=== PATIENT | female | born 1965 | race African-American/Black ===

== ENCOUNTER 2023-08-18 18:39 | Inpatient (IN) | payer MEDICAID, OTHER ==
[~2023-08-18] VITALS: Ht 177.8 cm; Wt 69.4 kg
[~2023-08-18 18:39] MED LIST: AMLO10TA80 PO; HYDR50TA39 PO
[2023-08-18 20:51] LABS: BASOPHILS % 0.8 % (0.0-2.0); DIFFERENTIAL COMMENT 0; EOSINOPHILS % 3.7 % (0.0-5.0); HEMATOCRIT. 28.8 % (36.0-48.0); HEMOGLOBIN. 8.8 g/dL (12.0-16.0); LYMPHOCYTES % 23.6 % (20.0-50.0); MEAN CORPUSCULAR HEMOGLOBIN 23.1 pg (28.0-32.0); MEAN CORPUSCULAR HGB CONC 30.5 g/dL (31.0-37.0); MEAN CORPUSCULAR VOLUME 75.8 fL (81.0-99.0); MEAN PLATELET VOLUME 7.5 fl (7.4-10.4); MONOCYTES % 10.4 % (2.0-8.0); NEUTROPHILS % 61.5 % (40.0-76.0); PLATELET 385 x1000/uL (130-400); RED CELL DISTRIBUTION WIDTH 18.4 % (11.6-14.6); WHITE BLOOD COUNT 4.1 x1000/uL (4.5-11.0)
[2023-08-18 20:55] LABS: CHLORIDE 106 mEq/L (98-107); POTASSIUM 4.7 mEq/L (3.5-5.1); SODIUM 139 mEq/L (136-145)
[2023-08-18 20:56] LABS: CALCIUM 9.1 mg/dL (8.7-10.4); CARBON DIOXIDE 27 mEq/L (21-32)
[2023-08-18 21:00] LABS: PROTHROMBIN TIME 10.7 sec (9.6-11.0)
[2023-08-18 21:01] LABS: CREATININE 1.1 mg/dL (0.6-1.0); GLUCOSE 75 mg/dL (70-105); UREA NITROGEN BLOOD 17 mg/dL (9-23)
[2023-08-18 21:03] LABS: ALANINE AMINOTRANSFERASE 10 IU/L (10-49); ASPARTATE AMINOTRANSFERASE 15 IU/L (<34); BILIRUBIN TOTAL 0.2 mg/dL (0.1-1.0); PROTEIN TOTAL 8.5 g/dL (6.0-8.3)
[2023-08-18] MEDS: ONDANSETRON HCL 4MG/2ML INJ IV STA (21:34)
[2023-08-18] MEDS: SODIUM CHLORIDE 0.9% 1,000 ML IV ONE (21:34)
[2023-08-18] MEDS: MORPHINE SULFATE 4 MG/ML INJ (FOR IV/IM USE) IV STA (21:34)
[2023-08-18 21:58] LABS: CLARITY URINE CLEAR (CLEAR); COLOR URINE YELLOW (YELLOW); GLUCOSE URINE NEGATIVE (NEGATIVE); KETONES URINE NEGATIVE (NEGATIVE); LEUKOCYTE ESTERASE URINE NEGATIVE (NEGATIVE); NITRITE URINE NEGATIVE (NEGATIVE); OCCULT BLOOD URINE NEGATIVE (NEGATIVE); PH URINE 7.5 (4.5-8.0); PROTEIN URINE NEGATIVE (NEGATIVE); SPECIFIC GRAVITY URINE 1.015 (1.005-1.030)
[2023-08-19] VITALS (7 sets, daily range): BP systolic 105–145; BP diastolic 58–83; PULSE 73–82; RESP 18–20; TEMP 97.7–98.6
[2023-08-19] MEDS ORDERED: ONDANSETRON HCL 4MG/2ML INJ IV PRN (02:15)
[2023-08-19] MEDS ORDERED: MAGNESIUM/ALUMINUM HYDROXIDE/SIMETHICONE 30ML UDC PO PRN (02:15)
[2023-08-19] MEDS ORDERED: IPRATROPIUM/ALBUTEROL 0.5-3(2.5)MG/3ML NEB HHN PRN (02:15)
[2023-08-19] MEDS: PANTOPRAZOLE SODIUM 40 MG/VIAL IV SCH (05:38)
[2023-08-19 07:30] LABS: CHLORIDE 107 mEq/L (98-107); POTASSIUM 4.8 mEq/L (3.5-5.1); SODIUM 139 mEq/L (136-145)
[2023-08-19 07:31] LABS: CARBON DIOXIDE 25 mEq/L (21-32)
[2023-08-19 07:32] LABS: CALCIUM 8.8 mg/dL (8.7-10.4); HCG SCREEN NEGATIVE
[2023-08-19 07:36] LABS: GLUCOSE 89 mg/dL (70-105); IRON 36 ug/dL (50-170); UREA NITROGEN BLOOD 18 mg/dL (9-23)
[2023-08-19 07:37] LABS: FERRITIN 21 ng/mL (10-291)
[2023-08-19 07:38] LABS: CREATINE KINASE 54 IU/L (34-145); FOLIC ACID (FOLATE) SERUM 13.31 ng/mL (>5.38); VITAMIN B12 SERUM 425 pg/mL (211-911)
[2023-08-19 07:39] LABS: TOTAL IRON BINDING CAPACITY 232 ug/dl (250-425)
[2023-08-19] MEDS: AMLODIPINE 5MG TABLET PO SCH (09:04)
[2023-08-19] MEDS: IRON SUCROSE COMPLEX 100 MG/5 ML ML IV SCH (09:04)
[2023-08-19] MEDS: ENOXAPARIN 40MG/0.4ML SYR SUBCUT SCH (09:04)
[2023-08-19] MEDS ORDERED: IBUP-2029 PO (09:24)
[2023-08-19] MEDS ORDERED: METF-414 PO (09:24)
[2023-08-19] MEDS ORDERED: SERT25TA74 PO (09:24)
[2023-08-19] MEDS ORDERED: OLAN5TAB74 PO (09:24)
[2023-08-19] MEDS ORDERED: ATOR10TA69 PO (09:24)
[2023-08-19] MEDS: ACETAMINOPHEN 650MG/20.3ML UDC GT PRN (16:36)
[2023-08-19 18:15] LABS: CREATINE KINASE 48 IU/L (34-145)
[2023-08-19] MEDS ORDERED: OLANZAPINE 5MG TABLET ODT PO SCH (21:00)
[2023-08-20] VITALS: BP 129/60; PULSE 71; RESP 16; TEMP 98.6
[2023-08-20 04:00] VITALS: BP 114/61; PULSE 75; RESP 19; TEMP 98.1
[2023-08-20 06:11] LABS: BASOPHILS % 1.3 % (0.0-2.0); DIFFERENTIAL COMMENT 0; EOSINOPHILS % 4.4 % (0.0-5.0); HEMATOCRIT. 27.2 % (36.0-48.0); HEMOGLOBIN. 8.1 g/dL (12.0-16.0); LYMPHOCYTES % 20.7 % (20.0-50.0); MEAN CORPUSCULAR HGB CONC 29.6 g/dL (31.0-37.0); MEAN CORPUSCULAR VOLUME 74.3 fL (81.0-99.0); MEAN PLATELET VOLUME 7.7 fl (7.4-10.4); NEUTROPHILS % 61.6 % (40.0-76.0); PLATELET 351 x1000/uL (130-400); RED BLOOD CELL COUNT 3.66 mill/uL (4.2-5.4); WHITE BLOOD COUNT 3.8 x1000/uL (4.5-11.0)
[2023-08-20 06:24] LABS: CHLORIDE 105 mEq/L (98-107); POTASSIUM 4.8 mEq/L (3.5-5.1); SODIUM 137 mEq/L (136-145)
[2023-08-20 06:25] LABS: CALCIUM 9.1 mg/dL (8.7-10.4); CARBON DIOXIDE 26 mEq/L (21-32)
[2023-08-20 06:30] LABS: CREATININE 1.1 mg/dL (0.6-1.0); GLUCOSE 91 mg/dL (70-105); TRIGLYCERIDE 104 mg/dL (0-150)
[2023-08-20 06:31] LABS: LDL CHOLESTEROL 99 mg/dL (5-100); UREA NITROGEN BLOOD 18 mg/dL (9-23)
[2023-08-20 06:32] LABS: CHOLESTEROL 155 mg/dL (<200); HDL CHOLESTEROL 48 mg/dL (>65)
[2023-08-20 06:34] LABS: THYROID STIMULATING HORMONE 1.71 uIU/mL (0.55-4.78)
[2023-08-20 06:38] LABS: TROPONIN I HIGH SENSITIVITY < 4 ng/L (3.0-34)
[2023-08-20 08:00] VITALS: BP 125/75; PULSE 75; RESP 17; TEMP 96.1
[2023-08-20] MEDS: FERROUS SULFATE 325MG TABLET PO SCH (08:38)
[2023-08-20] MEDS ORDERED: FERR-63 PO (11:35)
[2023-08-20] MEDS ORDERED: OLAN5TAB6 PO (11:35)
[2023-08-20 11:52] VITALS: BP 125/75; PULSE 75; TEMP 96.1; O2SAT 97
[2023-08-20 12:00] VITALS: BP 110/65; PULSE 86; RESP 18; TEMP 99
== END 2023-08-20 14:42 | disposition home or self-care (01) | DRG 252 ==
LOC: ER 18:39 → 6EST 22:03 → EDBEDREQTM 22:08 → EDBEDREQ 22:08
PROVIDERS: ADMIT Internal Medicine; ATTEND Internal Medicine
DX: K91.89 Other postprocedural complications and disorders of digestive system (principal); I50.30 Unspecified diastolic (congestive) heart failure; I11.0 Hypertensive heart disease with heart failure; D50.9 Iron deficiency anemia, unspecified; E11.9 Type 2 diabetes mellitus without complications; E78.00 Pure hypercholesterolemia, unspecified; F17.210 Nicotine dependence, cigarettes, uncomplicated; F20.9 Schizophrenia, unspecified; F41.1 Generalized anxiety disorder; F43.10 Post-traumatic stress disorder, unspecified; F41.9 Anxiety disorder, unspecified; Z79.899 Other long term (current) drug therapy; Z59.01 Sheltered homelessness
CPT/HCPCS: 36415; 71045; 74176; 80048; 80053; 80061; 81003; 82550; 82607; 82728; 82746; 82962; 83036; 83540; 83550; 83880; 84443; 84484; 84703; 85025; 85379; 93005; 93306; 99285; C9113; J1650; J2270; J2405; J7030

== ENCOUNTER 2023-09-27 09:51 | Inpatient (IN) | payer OTHER ==
[~2023-09-27] VITALS: Ht 177.8 cm; Wt 67.8 kg
[~2023-09-27 09:51] MED LIST changes: +FERR-63 PO; +IBUP-2029 PO; +OLAN5TAB6 PO; +SERT25TA74 PO
[2023-09-27 10:53] LABS: CHLORIDE 111 mEq/L (98-107); POTASSIUM 3.3 mEq/L (3.5-5.1); SODIUM 144 mEq/L (136-145)
[2023-09-27 10:54] LABS: BASOPHILS % 0.5 % (0.0-2.0); CALCIUM 9.1 mg/dL (8.7-10.4); CARBON DIOXIDE 25 mEq/L (21-32); DIFFERENTIAL COMMENT 0; EOSINOPHILS % 5.8 % (0.0-5.0); HEMATOCRIT. 29.4 % (36.0-48.0); HEMOGLOBIN. 9.3 g/dL (12.0-16.0); LYMPHOCYTES % 20.4 % (20.0-50.0); MEAN CORPUSCULAR HGB CONC 31.5 g/dL (31.0-37.0); MEAN CORPUSCULAR VOLUME 79.2 fL (81.0-99.0); MEAN PLATELET VOLUME 8.1 fl (7.4-10.4); MONOCYTES % 10.2 % (2.0-8.0); NEUTROPHILS % 63.1 % (40.0-76.0); PLATELET 249 x1000/uL (130-400); RED BLOOD CELL COUNT 3.71 mill/uL (4.2-5.4); WHITE BLOOD COUNT 3.2 x1000/uL (4.5-11.0)
[2023-09-27 10:56] LABS: PROTHROMBIN TIME 10.9 sec (9.6-11.0)
[2023-09-27 10:59] LABS: CREATININE 0.8 mg/dL (0.6-1.0); GLUCOSE 96 mg/dL (70-105); UREA NITROGEN BLOOD 12 mg/dL (9-23)
[2023-09-27 11:04] LABS: TROPONIN I HIGH SENSITIVITY < 4 ng/L (3.0-34)
[2023-09-27] MEDS: POTASSIUM CHLORIDE 20MEQ TABLET SR PO NR (11:21)
[2023-09-27] MEDS: ACETAMINOPHEN 325MG TABLET PO NR (11:21)
[2023-09-27] MEDS: CLONIDINE 0.1MG TABLET PO NR (13:06)
[2023-09-27 13:27] LABS: TROPONIN I HIGH SENSITIVITY < 4 ng/L (3.0-34)
[2023-09-27] MEDS ORDERED: GUAIFENESIN 200MG/10ML SUGAR FREE UDC PO PRN (14:45)
[2023-09-27] MEDS ORDERED: MAGNESIUM/ALUMINUM HYDROXIDE/SIMETHICONE 30ML UDC PO PRN (14:45)
[2023-09-27] MEDS ORDERED: IPRATROPIUM/ALBUTEROL 0.5-3(2.5)MG/3ML NEB HHN PRN (14:45)
[2023-09-27] MEDS ORDERED: ACETAMINOPHEN 325MG TABLET PO PRN (14:45)
[2023-09-27] MEDS ORDERED: DOCUSATE SODIUM 100MG CAPSULE PO PRN (14:45)
[2023-09-27] MEDS: ENOXAPARIN 40MG/0.4ML SYR SUBCUT SCH (15:08)
[2023-09-27] MEDS: SODIUM CHLORIDE 0.45% 1,000 ML IV SCH (15:13)
[2023-09-27 15:47] LABS: IRON 59 ug/dL (50-170)
[2023-09-27 15:49] LABS: TOTAL IRON BINDING CAPACITY 243 ug/dl (250-425)
[2023-09-27] MEDS: PIPERACILLIN/TAZO 3.375G/50ML 50 ML IV SCH (17:22)
[2023-09-27] MEDS: VANCOMYCIN 1.25GM PMX (XELLIA) 250 ML IV SCH (18:18)
[2023-09-27] MEDS: OLANZAPINE 5MG TABLET ODT PO SCH (21:55)
[2023-09-27] MEDS: HYDRALAZINE HCL 50MG TABLET PO SCH (22:04)
[2023-09-27] MEDS: KETOROLAC 15MG/ML VIAL IV PRN (22:04)
[2023-09-28] VITALS: BP 135/65; PULSE 58; RESP 18; TEMP 96.8
[2023-09-28 04:17] VITALS: BP 136/76; PULSE 78; RESP 19; TEMP 97.6
[2023-09-28] MEDS: DIPHENHYDRAMINE 25MG CAPSULE PO PRN (06:17)
[2023-09-28] MEDS: ACETAMINOPHEN 325MG TABLET PO PRN (06:18)
[2023-09-28 06:30] LABS: BASOPHILS % 0.9 % (0.0-2.0); DIFFERENTIAL COMMENT 0; EOSINOPHILS % 7.4 % (0.0-5.0); HEMATOCRIT. 29.3 % (36.0-48.0); HEMOGLOBIN. 9.5 g/dL (12.0-16.0); LYMPHOCYTES % 35.5 % (20.0-50.0); MEAN CORPUSCULAR HEMOGLOBIN 24.9 pg (28.0-32.0); MEAN CORPUSCULAR HGB CONC 32.3 g/dL (31.0-37.0); MEAN CORPUSCULAR VOLUME 77.1 fL (81.0-99.0); MEAN PLATELET VOLUME 8.5 fl (7.4-10.4); MONOCYTES % 7.7 % (2.0-8.0); NEUTROPHILS % 48.5 % (40.0-76.0); PLATELET 241 x1000/uL (130-400); RED CELL DISTRIBUTION WIDTH 19.6 % (11.6-14.6)
[2023-09-28 06:56] LABS: CALCIUM 8.6 mg/dL (8.7-10.4); CARBON DIOXIDE 23 mEq/L (21-32); CHLORIDE 111 mEq/L (98-107); POTASSIUM 3.5 mEq/L (3.5-5.1); SODIUM 142 mEq/L (136-145)
[2023-09-28 07:01] LABS: CREATININE 0.8 mg/dL (0.6-1.0); GLUCOSE 78 mg/dL (70-105)
[2023-09-28 07:02] LABS: LDL CHOLESTEROL 79 mg/dL (5-100); T4 FREE 0.91 ng/dL (0.89-1.76); THYROID STIMULATING HORMONE 0.56 uIU/mL (0.55-4.78); TRIGLYCERIDE 88 mg/dL (0-150); UREA NITROGEN BLOOD 10 mg/dL (9-23)
[2023-09-28 07:03] LABS: CHOLESTEROL 135 mg/dL (<200); HDL CHOLESTEROL 44 mg/dL (>65)
[2023-09-28 07:04] LABS: PHOSPHORUS 3.3 mg/dL (2.5-4.9)
[2023-09-28 07:09] LABS: CLARITY URINE CLEAR (CLEAR); COLOR URINE YELLOW (YELLOW); GLUCOSE URINE NEGATIVE (NEGATIVE); KETONES URINE NEGATIVE (NEGATIVE); LEUKOCYTE ESTERASE URINE 2+ (NEGATIVE); NITRITE URINE NEGATIVE (NEGATIVE); OCCULT BLOOD URINE NEGATIVE (NEGATIVE); PH URINE 5.5 (4.5-8.0); PROTEIN URINE NEGATIVE (NEGATIVE); SPECIFIC GRAVITY URINE 1.025 (1.005-1.030); UROBILINOGEN URINE 0.2 E.U./dL (0.2-1.0)
[2023-09-28 07:46] LABS: *AMPHETAMINES SCREEN URINE PRESUMPTIVE POSITIVE (NEGATIVE); *BARBITURATES SCREEN URINE NEGATIVE (NEGATIVE); *BENZODIAZEPINES SCREEN URINE NEGATIVE (NEGATIVE); *COCAINE SCREEN URINE NEGATIVE (NEGATIVE)
[2023-09-28 07:47] LABS: CANNABINOID URINE SCREEN NEGATIVE (NEGATIVE); ECSTASY MDMA SCREEN URINE NEGATIVE (NEGATIVE); METHADONE URINE SCREEN NEGATIVE (NEGATIVE); OPIATES URINE SCREEN NEGATIVE (NEGATIVE); PHENCYCLIDINE URINE SCREEN NEGATIVE (NEGATIVE)
[2023-09-28 08:00] VITALS: BP 122/70; PULSE 98; RESP 18; TEMP 97
[2023-09-28 08:12] LABS: BACTERIA URINE TRACE; RBC URINE 0-2 /hpf (0-2); SQUAMOUS EPITHELIAL CELL URINE FEW /lpf (RARE/1+)
[2023-09-28] MEDS: OMEPRAZOLE 20MG CAPSULE EXTENDED RELEASE PO SCH (09:09)
[2023-09-28] MEDS: AMLODIPINE 10MG TABLET PO SCH (09:09)
[2023-09-28] MEDS: SERTRALINE HCL 25MG TABLET PO SCH (09:10)
[2023-09-28] MEDS: VANCOMYCIN 750MG/150ML IV SCH (10:32)
[2023-09-28 11:46] LABS: FOLIC ACID (FOLATE) SERUM 11.16 ng/mL (>5.38); VITAMIN B12 SERUM 278 pg/mL (211-911)
[2023-09-28 12:00] VITALS: BP 117/84; PULSE 62; RESP 18; TEMP 97.3
[2023-09-28 16:00] VITALS: BP 114/62; PULSE 59; RESP 20; TEMP 97
[2023-09-28] MEDS: VANCOMYCIN 1GM/200ML PMX (BAXTER) IV SCH (19:12)
[2023-09-28 20:00] VITALS: BP 112/51; PULSE 58; RESP 18; TEMP 97.9
[2023-09-29] VITALS: BP 134/73; PULSE 64; RESP 18; TEMP 97.7
[2023-09-29 03:56] LABS: HEMATOCRIT 30.7 % (36.0-48.0); HEMOGLOBIN 9.9 g/dL (12.0-16.0); MEAN CORPUSCULAR HEMOGLOBIN 24.9 pg (28.0-32.0); MEAN CORPUSCULAR HGB CONC 32.2 g/dL (31.0-37.0); MEAN CORPUSCULAR VOLUME 77.2 fL (81.0-99.0); PLATELET 265 x1000/uL (130-400); RED BLOOD CELL COUNT 3.97 mill/uL (4.2-5.4); RED CELL DISTRIBUTION WIDTH 19.7 % (11.6-14.6)
[2023-09-29 04:00] VITALS: BP 124/71; PULSE 62; RESP 18; TEMP 97.9
[2023-09-29 04:07] LABS: CHLORIDE 112 mEq/L (98-107); POTASSIUM 3.7 mEq/L (3.5-5.1); SODIUM 140 mEq/L (136-145)
[2023-09-29 04:08] LABS: CALCIUM 8.8 mg/dL (8.7-10.4); CARBON DIOXIDE 22 mEq/L (21-32)
[2023-09-29 04:13] LABS: GLUCOSE 84 mg/dL (70-105); UREA NITROGEN BLOOD 11 mg/dL (9-23)
[2023-09-29 04:15] LABS: ALBUMIN 3.5 g/dL (3.2-4.8)
[2023-09-29 08:00] VITALS: BP 162/82; PULSE 68; RESP 20; TEMP 98.3
[2023-09-29 12:00] VITALS: BP 137/54; PULSE 61; RESP 19; TEMP 97.9
[2023-09-29] MEDS: HYDRALAZINE HCL 25MG TABLET PO SCH (14:27)
[2023-09-29 16:00] VITALS: BP 148/77; PULSE 72; RESP 19; TEMP 97.6
[2023-09-29 20:00] VITALS: BP 139/89; PULSE 71; RESP 19; TEMP 97.7
[2023-09-30] VITALS (8 sets, daily range): BP systolic 146–214; BP diastolic 79–118; PULSE 63–107; RESP 18–22; TEMP 97.3–98.9
[2023-09-30] MEDS: ONDANSETRON HCL 4MG/2ML INJ IV PRN ×2 (06:54→18:10)
[2023-09-30 06:57] LABS: HEMATOCRIT 34.3 % (36.0-48.0); MEAN CORPUSCULAR HEMOGLOBIN 24.9 pg (28.0-32.0); MEAN CORPUSCULAR VOLUME 77.9 fL (81.0-99.0); PLATELET 307 x1000/uL (130-400); RED CELL DISTRIBUTION WIDTH 20.3 % (11.6-14.6); WHITE BLOOD COUNT 4.1 x1000/uL (4.5-11.0)
[2023-09-30 07:13] LABS: CHLORIDE 105 mEq/L (98-107); POTASSIUM 3.6 mEq/L (3.5-5.1); SODIUM 140 mEq/L (136-145)
[2023-09-30 07:14] LABS: CALCIUM 9.3 mg/dL (8.7-10.4); CARBON DIOXIDE 24 mEq/L (21-32)
[2023-09-30 07:19] LABS: CREATININE 0.9 mg/dL (0.6-1.0); GLUCOSE 100 mg/dL (70-105); UREA NITROGEN BLOOD 8 mg/dL (9-23)
[2023-09-30] MEDS: CLONIDINE 0.1MG TABLET PO PRN (08:10)
[2023-09-30] MEDS ORDERED: AMOX1TAB16 MT (09:11)
[2023-09-30] MEDS ORDERED: HYDR50TA39 PO (09:11)
[2023-09-30] MEDS ORDERED: AMLO10TA80 PO (09:11)
[2023-09-30] MEDS ORDERED: SULF1TAB48 MT (09:11)
[2023-09-30] MEDS ORDERED: AMLODIPINE 10MG TABLET PO SCH (09:15)
[2023-09-30] MEDS: HYDRALAZINE 20MG/ML VIAL IV SCH (09:37)
[2023-09-30] MEDS: HYDRALAZINE HCL 50MG TABLET PO SCH (13:15)
[2023-09-30] MEDS: CLONIDINE 0.1MG TABLET PO SCH (14:51)
[2023-09-30] MEDS: LABETALOL 5MG/ML 4ML INJ IV NR (18:12)
[2023-09-30] MEDS: LABETALOL 5MG/ML 4ML INJ IV PRN (20:02)
[2023-09-30] MEDS: CLONIDINE 0.2MG TABLET PO SCH (21:34)
[2023-10-01] VITALS: BP 191/93; PULSE 77; RESP 19; TEMP 97.1
[2023-10-01 04:00] VITALS: BP 185/100; PULSE 98; RESP 18; TEMP 97
[2023-10-01] MEDS: LABETALOL 5MG/ML 4ML VIAL IV PRN (04:43)
[2023-10-01 08:00] VITALS: BP 167/100; PULSE 85; RESP 18; TEMP 97.9
[2023-10-01] MEDS ORDERED: CLON0.3T PO (09:00)
[2023-10-01] MEDS ORDERED: HYDR25TA MT (09:00)
[2023-10-01 12:00] VITALS: BP 69/38; PULSE 86; RESP 18; TEMP 96.7
[2023-10-01] MEDS ORDERED: SODIUM CHLORIDE 0.9% 1000ML BAG (SEPSIS BOLUS) IV ONE ×2 (12:30)
[2023-10-01] MEDS: SODIUM CHLORIDE 0.9% 500 ML IV NR ×2 (13:43)
[2023-10-01] MEDS ORDERED: CLONIDINE 0.3MG TABLET PO SCH (14:00)
[2023-10-01] MEDS: LACTATED RINGERS 1,000 ML IV ONE (14:27)
[2023-10-01 16:00] VITALS: BP 78/41; PULSE 71; RESP 18; TEMP 98
[2023-10-01] MEDS ORDERED: LABETALOL 5MG/ML 4ML INJ IV PRN (19:12)
[2023-10-01 20:00] VITALS: BP 84/47; PULSE 80; RESP 17; TEMP 97.1
[2023-10-02] VITALS: BP 84/46; PULSE 63; RESP 19; TEMP 98.7
[2023-10-02] MEDS ORDERED: SODIUM CHLORIDE 0.9% 500 ML IV ONE (00:45)
[2023-10-02] MEDS: SODIUM CHLORIDE 0.9% 500 ML IV ONE (01:00)
[2023-10-02 04:00] VITALS: BP 91/56; PULSE 57; RESP 19; TEMP 97.5
[2023-10-02 08:00] VITALS: BP 93/42; PULSE 56; RESP 18; TEMP 97.8
[2023-10-02] MEDS: LACTATED RINGERS 1,000 ML IV ONE (08:40)
[2023-10-02] MEDS: HYDROCHLOROTHIAZIDE 12.5MG CAPSULE PO SCH (08:43)
[2023-10-02 12:00] VITALS: BP 96/50; PULSE 57; RESP 18; TEMP 98.1
[2023-10-02 13:45] VITALS: BP 96/50; PULSE 57; TEMP 98.1; O2SAT 99
[2023-10-02 14:10] VITALS: TEMP 98.1
[2023-10-03] MEDS ORDERED: FAMOTIDINE 20MG TABLET PO SCH (09:00)
== END 2023-10-02 15:30 | disposition home or self-care (01) | DRG 812 ==
LOC: ER 09:51 → 5WST 12:58 → EDBEDREQ 13:17 → EDBEDREQTM 13:17 → 7WST 23:07
PROVIDERS: ADMIT Internal Medicine; ATTEND Internal Medicine
DX: T50.911A Poisoning by multiple unspecified drugs, medicaments and biological substances, accidental (unintentional), initial encounter (principal); G92.8 Other toxic encephalopathy; D72.10 Eosinophilia, unspecified; E11.40 Type 2 diabetes mellitus with diabetic neuropathy, unspecified; L03.116 Cellulitis of left lower limb; I95.9 Hypotension, unspecified; I11.9 Hypertensive heart disease without heart failure; D50.9 Iron deficiency anemia, unspecified; D72.819 Decreased white blood cell count, unspecified; E78.00 Pure hypercholesterolemia, unspecified; T43.651A Poisoning by methamphetamines accidental (unintentional), initial encounter; T63.301A Toxic effect of unspecified spider venom, accidental (unintentional), initial encounter; J45.909 Unspecified asthma, uncomplicated; E87.6 Hypokalemia; F17.200 Nicotine dependence, unspecified, uncomplicated; F43.10 Post-traumatic stress disorder, unspecified; I16.9 Hypertensive crisis, unspecified; N39.0 Urinary tract infection, site not specified; F19.90 Other psychoactive substance use, unspecified, uncomplicated; I16.0 Hypertensive urgency; Z59.01 Sheltered homelessness; Z98.51 Tubal ligation status; Z98.84 Bariatric surgery status; Z79.899 Other long term (current) drug therapy; Z91.148 Patient's other noncompliance with medication regimen for other reason; Y92.89 Other specified places as the place of occurrence of the external cause
CPT/HCPCS: 36415; 71045; 80048; 80061; 80202; 80305; 80320; 81003; 82040; 82607; 82728; 82746; 82962; 83036; 83540; 83550; 83605; 83735; 83880; 84100; 84145; 84439; 84443; 84484; 85025; 85027; 93970; 99285; C1893; J0360; J1650; J1885; J2405; J2543; J3370; J3490; Q0163; G0480